=== PATIENT | female | born 2000 | race Two or more races ===

== ENCOUNTER 2024-09-09 15:06 | Emergency (ER) | payer SELFPAY ==
[~2024-09-09] VITALS: Ht 172.7 cm; Wt 77.0 kg
[2024-09-09 15:08] VITALS: BP 124/63; PULSE 93; RESP 18; TEMP 99; O2SAT 100
== END 2024-09-09 16:50 | disposition left against medical advice (07) ==
LOC: ER 15:06
DX: R07.89 Other chest pain (principal); Z53.21 Procedure and treatment not carried out due to patient leaving prior to being seen by health care provider